=== PATIENT | female | born 1950 | race Caucasian/White ===

== ENCOUNTER 2016-10-10 11:29 | Inpatient (IN) | payer MEDICARE, OTHER ==
[~2016-10-10] VITALS: Ht 170.2 cm; Wt 62.7 kg
[~2016-10-10 11:29] MED LIST: ALPRAZOLAM; CARAFATE1 GM PO; CLARITIN-D 121 EACH PO; ELAVIL50 MG PO; ESTRACE1 MG PO; FLONASE ALLER15.8 ML; IMITREX100 MG PO; INDERAL LA80 MG PO; MICRO-K10 MEQ PO; NEURONTIN300 M1 PO; PHENERGAN25 M1 PO; SPIRIVA18 MCG INH; TOPAMAX100 MG PO; TRAMADOL HCL50 MG PO; VENTOLIN HFA8 GM INH; XANAX2 MG PO; ZANAFLEX4 MG PO
[2016-10-10 11:56] LABS: BILIRUBIN NEGATIVE (NEGATIVE); BLOOD 1+ Ery/uL (NEGATIVE); CLARITY CLEAR (CLEAR); COLOR STRAW (YELLOW); GLUCOSE (U) NORMAL (NORMAL); KETONE (U) NEGATIVE (NEGATIVE); LEUKOCYTES NEGATIVE Leu/uL (NEGATIVE); NITRITE POSITIVE (NEGATIVE); PROTEIN TRACE (LOW) mg/dL (NEGATIVE); SPECIFIC GRAVITY >=1.030 (1.001-1.030); UROBILINOGEN 0.2 mg/dL (0.2-1.0); pH 5.5 (5.0-9.0)
[2016-10-10 12:02] LABS: BACTERIA 3+; SQUAMOUS EPITHELIAL CELLS RARE
[2016-10-10 12:08] LABS: BASOPHIL 0.1 % (0-2); EOSINOPHIL 0 % (0-7); HCT 40.3 % (37.0-47.0); LYMPHOCYTE 6.2 % (15-48); MCH 28.2 pg (25.0-31.0); MCHC 32.3 g/dL (32.0-36.0); MCV 87.4 fL (78.0-100.0); MONOCYTE 6.9 % (0-12); MPV 8.7 fL (6.0-9.5); NEUTROPHIL 86.8 % (41-80); PLT 415 K/uL (150-400); RBC 4.61 M/uL (4.20-5.40); RDW 15.1 % (11.5-14.0)
[2016-10-10 12:13] LABS: WBC 29.4 K/uL (4.0-10.5)
[2016-10-10 12:22] LABS: INR 1.2 (0.9-1.2); PROTHROMBIN TIME 14.8 SECONDS (11.7-14.0)
[2016-10-10 12:26] LABS: LACTIC ACID 2.7 mmol/L (0.5-2.2)
[2016-10-10 12:45] LABS: ALBUMIN 3.9 g/dL (3.4-4.8); BILIRUBIN - TOTAL 0.9 mg/dL (0.1-1.0); CREATININE 0.8 mg/dL (0.5-1.0); POTASSIUM 2.8 mmol/L (3.5-5.1); TOTAL PROTEIN 7.9 g/dL (6.4-8.3)
[2016-10-10 12:54] LABS: PTT 29.3 SECONDS (23.2-31.4)
[2016-10-11 01:28] LABS: BASOPHIL 0.1 % (0-2); EOSINOPHIL 0 % (0-7); HCT 30.7 % (37.0-47.0); HGB 9.7 g/dl (12.5-16.0); LYMPHOCYTE 9.2 % (15-48); MCHC 31.6 g/dL (32.0-36.0); MCV 88.7 fL (78.0-100.0); MONOCYTE 10.5 % (0-12); MPV 8.8 fL (6.0-9.5); NEUTROPHIL 80.2 % (41-80); PLT 324 K/uL (150-400); RBC 3.46 M/uL (4.20-5.40); RDW 15.1 % (11.5-14.0)
[2016-10-11 01:29] LABS: WBC 20.7 K/uL (4.0-10.5)
[2016-10-11 05:41] LABS: CREATININE 0.7 mg/dL (0.5-1.0); POTASSIUM 4.2 mmol/L (3.5-5.1)
[2016-10-11 11:30] LABS: BASOPHIL 0.1 % (0-2); EOSINOPHIL 0 % (0-7); HCT 33.3 % (37.0-47.0); HGB 10.6 g/dl (12.5-16.0); LYMPHOCYTE 6.4 % (15-48); MCH 28.3 pg (25.0-31.0); MCHC 31.8 g/dL (32.0-36.0); MCV 88.8 fL (78.0-100.0); MONOCYTE 8.2 % (0-12); MPV 9.1 fL (6.0-9.5); NEUTROPHIL 85.3 % (41-80); PLT 353 K/uL (150-400); RBC 3.75 M/uL (4.20-5.40); RDW 15.1 % (11.5-14.0)
[2016-10-11 11:31] LABS: WBC 18.8 K/uL (4.0-10.5)
[2016-10-11 11:37] LABS: CREATININE 0.6 mg/dL (0.5-1.0); MAGNESIUM 1.34 mg/dL (1.40-2.10); POTASSIUM 3.2 mmol/L (3.5-5.1)
[2016-10-11 11:39] LABS: CKMB 2.52 ng/mL (0.97-4.94); TROPONIN T < 0.010 ng/mL
[2016-10-11 17:51] LABS: CKMB 2.31 ng/mL (0.97-4.94); TROPONIN T < 0.010 ng/mL
[2016-10-11 23:24] LABS: CKMB 1.86 ng/mL (0.97-4.94); TROPONIN T < 0.010 ng/mL
[2016-10-12 03:49] LABS: BASOPHIL 0.1 % (0-2); EOSINOPHIL 0.1 % (0-7); HCT 34.2 % (37.0-47.0); HGB 10.8 g/dl (12.5-16.0); LYMPHOCYTE 6.5 % (15-48); MCH 27.8 pg (25.0-31.0); MCHC 31.6 g/dL (32.0-36.0); MCV 88.1 fL (78.0-100.0); MONOCYTE 9.5 % (0-12); MPV 8.7 fL (6.0-9.5); NEUTROPHIL 83.8 % (41-80); PLT 334 K/uL (150-400); RBC 3.88 M/uL (4.20-5.40); RDW 14.8 % (11.5-14.0); RETICULOCYTE COUNT 0.8 % (1.0-2.0); WBC 17.5 K/uL (4.0-10.5)
[2016-10-12 04:03] LABS: ALBUMIN 2.6 g/dL (3.4-4.8); BILIRUBIN - TOTAL 0.4 mg/dL (0.1-1.0); CREATININE 0.6 mg/dL (0.5-1.0); GLOBULIN (CALCULATION) 3.1 g/dL (2.2-4.2); MAGNESIUM 1.69 mg/dL (1.40-2.10); POTASSIUM 3.8 mmol/L (3.5-5.1); TOTAL PROTEIN 5.7 g/dL (6.4-8.3)
[2016-10-12 04:04] LABS: IRON 12 ug/dL (44-196); IRON % SATURATION 6 %SAT (20-50); TIBC (TOTAL IRON + UIBC) 197 U/L (228-428); UIBC 185 ug/dL (112-346)
[2016-10-12 04:21] LABS: FOLIC ACID (SERUM) 10.8 ng/mL (5.6-45.8)
[2016-10-13 04:31] LABS: BASOPHIL 0.1 % (0-2); EOSINOPHIL 0.9 % (0-7); HCT 30.8 % (37.0-47.0); HGB 9.7 g/dl (12.5-16.0); LYMPHOCYTE 6.5 % (15-48); MCH 27.9 pg (25.0-31.0); MCHC 31.5 g/dL (32.0-36.0); MCV 88.5 fL (78.0-100.0); MONOCYTE 11.1 % (0-12); MPV 9.2 fL (6.0-9.5); NEUTROPHIL 81.4 % (41-80); PLT 370 K/uL (150-400); RBC 3.48 M/uL (4.20-5.40); RDW 14.8 % (11.5-14.0); WBC 17.3 K/uL (4.0-10.5)
[2016-10-13 04:37] LABS: CREATININE 0.6 mg/dL (0.5-1.0); MAGNESIUM 1.65 mg/dL (1.40-2.10); POTASSIUM 3.8 mmol/L (3.5-5.1)
[2016-10-13 22:18] LABS: BILIRUBIN NEGATIVE (NEGATIVE); BLOOD NEGATIVE Ery/uL (NEGATIVE); CLARITY CLEAR (CLEAR); COLOR YELLOW (YELLOW); GLUCOSE (U) NORMAL (NORMAL); KETONE (U) NEGATIVE (NEGATIVE); LEUKOCYTES NEGATIVE Leu/uL (NEGATIVE); NITRITE NEGATIVE (NEGATIVE); PROTEIN NEGATIVE (NEGATIVE); SPECIFIC GRAVITY 1.015 (1.001-1.030); UROBILINOGEN 0.2 mg/dL (0.2-1.0); pH 6.5 (5.0-9.0)
[2016-10-14 04:43] LABS: BASOPHIL 0.1 % (0-2); EOSINOPHIL 0.3 % (0-7); HCT 31.1 % (37.0-47.0); HGB 9.8 g/dl (12.5-16.0); LYMPHOCYTE 5.5 % (15-48); MCH 27.6 pg (25.0-31.0); MCHC 31.5 g/dL (32.0-36.0); MCV 87.6 fL (78.0-100.0); MONOCYTE 13.3 % (0-12); MPV 9.3 fL (6.0-9.5); NEUTROPHIL 80.8 % (41-80); PLT 401 K/uL (150-400); RBC 3.55 M/uL (4.20-5.40); RDW 14.9 % (11.5-14.0); WBC 17.5 K/uL (4.0-10.5)
[2016-10-14 05:08] LABS: BUN <3.0 mg/dL (6-25); CHLORIDE 102 mmol/L (98-107); CREATININE 0.5 mg/dL (0.5-1.0); GLUCOSE 101 mg/dL (70-105); MAGNESIUM 1.56 mg/dL (1.40-2.10); POTASSIUM 3.1 mmol/L (3.5-5.1)
[2016-10-15 04:43] LABS: BASOPHIL 0.1 % (0-2); EOSINOPHIL 0.9 % (0-7); HCT 30.3 % (37.0-47.0); HGB 9.6 g/dl (12.5-16.0); MCH 27.8 pg (25.0-31.0); MCHC 31.7 g/dL (32.0-36.0); MCV 87.8 fL (78.0-100.0); MONOCYTE 10.8 % (0-12); MPV 8.9 fL (6.0-9.5); NEUTROPHIL 80.2 % (41-80); PLT 452 K/uL (150-400); RBC 3.45 M/uL (4.20-5.40)
[2016-10-15 04:46] LABS: WBC 18.1 K/uL (4.0-10.5)
[2016-10-15 05:22] LABS: CREATININE 0.6 mg/dL (0.5-1.0); MAGNESIUM 1.58 mg/dL (1.40-2.10); POTASSIUM 2.6 mmol/L (3.5-5.1)
[2016-10-15] MEDS ORDERED: AMIODARONE HCL200 MG PO (10:45)
[2016-10-15] MEDS ORDERED: XARELTO20 MG PO (10:45)
[2016-10-15] MEDS ORDERED: LOPRESSOR50 MG PO (10:45)
[2016-10-15] MEDS ORDERED: PROTONIX 40MG T40 MG PO (13:11)
== END 2016-10-15 11:30 | disposition home health service (06) | DRG 872 ==
LOC: FER 11:29 → FMS 17:10 → FICU 10-11 11:07 → FTCU 10-14 13:01
PROVIDERS: Emergency Medicine; Hospitalist; Internal Medicine; ADMIT Internal Medicine
DX: A41.9 Sepsis, unspecified organism (principal); K56.60 Unspecified intestinal obstruction; I48.91 Unspecified atrial fibrillation; K56.7 Ileus, unspecified; I82.619 Acute embolism and thrombosis of superficial veins of unspecified upper extremity; D51.9 Vitamin B12 deficiency anemia, unspecified; N39.0 Urinary tract infection, site not specified; T80.818A Extravasation of other vesicant agent, initial encounter; R65.20 Severe sepsis without septic shock; K52.9 Noninfective gastroenteritis and colitis, unspecified; B19.20 Unspecified viral hepatitis C without hepatic coma; F41.9 Anxiety disorder, unspecified; F31.9 Bipolar disorder, unspecified; K27.9 Peptic ulcer, site unspecified, unspecified as acute or chronic, without hemorrhage or perforation; I10 Essential (primary) hypertension; K57.90 Diverticulosis of intestine, part unspecified, without perforation or abscess without bleeding; J98.4 Other disorders of lung; D50.9 Iron deficiency anemia, unspecified; G89.29 Other chronic pain; D72.829 Elevated white blood cell count, unspecified; Z87.440 Personal history of urinary (tract) infections; Z85.028 Personal history of other malignant neoplasm of stomach; Z98.84 Bariatric surgery status; Z79.899 Other long term (current) drug therapy; Z88.1 Allergy status to other antibiotic agents; Z88.8 Allergy status to other drugs, medicaments and biological substances; Z87.891 Personal history of nicotine dependence
CPT/HCPCS: 36415; 74020; 74022; 80048; 80053; 80061; 80162; 81001; 81003; 82150; 82550; 82553; 82607; 82746; 83540; 83550; 83605; 83690; 83735; 84484; 85025; 85044; 85610; 85730; 87040; 87088; 87205; 87324; 87328; 87337; 87449; 93005; 93971; 94640; 97162; C9113; G0378; J0282; J1160; J1170; J1450; J2185; J2270; J2405; J2916; J3420; J3475; Q9967

== ENCOUNTER 2016-10-27 15:02 | Emergency (ER) | payer MEDICARE, OTHER ==
[~2016-10-27 15:02] MED LIST changes: +AMIODARONE HCL200 MG PO; +LOPRESSOR50 MG PO; +PROTONIX 40MG T40 MG PO; +XARELTO20 MG PO
== END 2016-10-27 16:37 | disposition home or self-care (01) ==
LOC: FER 15:02
DX: D64.9 Anemia, unspecified (principal); Z86.19 Personal history of other infectious and parasitic diseases; Z88.1 Allergy status to other antibiotic agents; Z88.5 Allergy status to narcotic agent; Z79.899 Other long term (current) drug therapy
CPT/HCPCS: 99284